=== PATIENT | female | born 1985 | race Caucasian/White ===

== ENCOUNTER → 2021-08-27 | Outpatient (CLI) | payer OTHER ==
[2021-08-27 11:16] VITALS: BP 139/86; PULSE 61; RESP 16; TEMP 98.3
--- NOTE | 2021-08-27 11:50 | P.GSHP ---
History of Present Illness H&P Date: 08/27/21 Chief Complaint: abcess right breast Kristan is a 36 old white female with a complaint of a right breast abscess. It has been present intermittently for 7 years since the of her son. She did not breast feed. It is located in the medial periaerolar region. This seemed to heal however it recurred 4 years later in the same spot. It drained and than healed over. The most recent recurrence was approximately 3 months ago. At that time it again became full, and drained spontaneously. She has most recently been started on cephalexin. This took the swelling down but it was scabbed. She has not had any fever or chills. She does have pain. Her entire right breast feels tender. Periods are regular, the abscess does not change with her periods. Nicotine: 1/2 PPD; used to smoke 2 PPD for 15 years caffiene: 2 cans of pop/day chocolate: every other day Family History: paternal grandmother: breast and colon cancer father: testicular cancer Hormonal History: menarche: 7 , breast fed: no, age at : 29 periods regular: LMP last week Surgical History: gallbladder wisdom teeth Medical History: seizure ( last one several weeks ago) bipolar Social History: Nicotine: Half a pack per day used to smoke 2 packs per day for 15 years jul approximately a week ago alcohol: none drugs: marijuana once a week - Constitutional Constitutional: Denies chills, Denies fever - EENT Eyes: bilateral blurred vision, denies pain Ears: bilateral: tinnitus, deny: decreased hearing Ears, nose, mouth and throat: Reports headache - Breasts Breasts: bilateral: as per HPI - Cardiovascular Cardiovascular: Denies chest pain, Denies shortness of breath - Respiratory Respiratory: Reports as per HPI, Denies cough - Gastrointestinal Gastrointestinal: Denies abdominal pain, Denies diarrhea, Denies nausea, Denies vomiting - Genitourinary (Female) Genitourinary: Denies dysuria, Denies hematuria - Menstruation Menstruation: Reports period normal - Musculoskeletal Musculoskeletal: Reports myalgias - Integumentary Integumentary: Denies pruritus, Denies rash - Neurological Neurological: Reports as per HPI - Psychiatric Psychiatric: Reports anxiety, Reports depression - Endocrine Endocrine: Reports fatigue, Denies weight change - Hematologic/Lymphatic Comment: none - Allergic/Immunologic Allergic/Immunologic: Reports as per HPI Past Medical History Past Medical History: Seizure Disorder Additional Past Medical History / Comment(s): epilepsy dx 2005. Obstetric history: History of Any Multi-Drug Resistant Organisms: None Reported Past Surgical History: Section, Cholecystectomy Additional Past Surgical History / Comment(s): wisdom teeth removed, on 03/09, front teeth removal due to epilepsy and fall, I & D right breast- 2013 Past Anesthesia/Blood Transfusion Reactions: No Reported Reaction Past Psychological History: Anxiety, Bipolar Smoking Status: Current every day smoker Past Alcohol Use History: None Reported Past Drug Use History: Marijuana - Past Family History Father Family Medical History: Cancer Additional Family Medical History / Comment(s): father testicular cancer, grandmother breast cancer Medications and Allergies Home Medications Medication Instructions Recorded Confirmed Type Ibuprofen [Motrin] 600 mg PO Q6HR PRN #40 tab 03/13/14 08/27/21 Rx lamoTRIgine [LaMICtal] 200 mg PO BID 03/23/14 08/27/21 History Lacosamide [Vimpat] 200 mg PO BID 08/27/21 08/27/21 History Allergies Allergy/AdvReac Type Severity Reaction Status Date / Time tramadol HCl [From [facility]] Allergy Nausea & Verified 08/27/21 11:08 Vomiting Surgical - Exam Vital Signs Temp Pulse Resp BP 98.3 F 61 16 139/86 08/27/21 11:10 08/27/21 11:10 08/27/21 11:10 08/27/21 11:10 BMI 37.1 - General moderate distress - Eyes normal ocular movement - ENT no hearing loss - Neck trachea midline - Respiratory Coarse breath sounds right base; left lung field clear normal respiratory effort - Cardiovascular Rhythm: regular Heart Sounds: normal: S1, S2 - Abdomen Abdomen: soft - Integumentary normal turgor - Neurologic no disoriented, no combative - Musculoskeletal normal gait, normal posture - Psychiatric oriented to time, oriented to person, oriented to place, speech is normal, memory intact Breast Exam: BRA: 42C inspection: bilateral grade 2/3 ptosis; erythema medial aspect of aerola palpation: right breast: Positional exam fibrocystic changes, tattoo over the breast, in the medial aspect of the periareolar region is approximately a 2 x 1 cm area of erythema no distinct abscess Right axilla: No adenopathy of concern Left breast: Positional exam fibrocystic changes no dominant masses or nodules of concern Left axilla: No adenopathy of concern Assessment and Plan Assessment: Impression: 1. Recurrent right breast abscess at this time it is not fluctuant 2. Patient has not had any radiographic images 3. Nicotine dependence 4. Bipolar 5. Anxiety/depression 6. BMI 37.1 7. family history of breast cancer 8. Rhonchi right lung base Plan: 1. Bilateral mammogram and right breast ultrasound 2. Follow-up after radiographic images 3. Encourage patient to stop smoking 4. At this time there is nothing which would warrant interventional drainage however we will await radiographic imaging CC: DR. Rios
== END ==
LOC: WWCWWP 10:57
PROVIDERS: ATTEND Surgery
DX: N61.1 Abscess of the breast and nipple (principal); F31.9 Bipolar disorder, unspecified; F41.9 Anxiety disorder, unspecified; F17.210 Nicotine dependence, cigarettes, uncomplicated; G40.909 Epilepsy, unspecified, not intractable, without status epilepticus; R09.89 Other specified symptoms and signs involving the circulatory and respiratory systems; Z80.3 Family history of malignant neoplasm of breast; Z88.6 Allergy status to analgesic agent; Z79.899 Other long term (current) drug therapy